=== PATIENT | female | born 1990 | race Caucasian/White ===

== ENCOUNTER 2018-04-01 10:47 | Inpatient (IN) | payer BC ==
[2018-04-01] MEDS ORDERED: Lidocaine 1% 50 ML MDV INJECT PRN (11:38)
[2018-04-01] MEDS ORDERED: Sodium Chloride 0.9% 2.5 ML Syringe FLUSH PRN (11:38)
[2018-04-01] MEDS ORDERED: Tranexamic Acid 1,000 MG in Sodium Chloride 0.9% 100 ML IV PRN (11:38)
[2018-04-01] MEDS ORDERED: Nalbuphine 10 MG/1 ML Vial IVPUSH PRN (11:38)
[2018-04-01] MEDS ORDERED: Misoprostol 200 MCG Tab PO PRN (11:38)
[2018-04-01] MEDS ORDERED: Sodium Chloride 0.9% 10 ML Syringe FLUSH PRN (11:38)
[2018-04-01] MEDS ORDERED: Methylergonovine 0.2 MG/1 ML Amp IM PRN (11:38)
[2018-04-01] MEDS ORDERED: Water For Irrigation,Sterile 1,000 ML Container IRR PRN (11:38)
[2018-04-01] MEDS ORDERED: Ampicillin 2 GM in Sodium Chloride 0.9% 100 ML IV ONE (11:38)
[2018-04-01] MEDS ORDERED: Carboprost Tromethamine 250 MCG/1 ML Amp IM PRN (11:38)
[2018-04-01] MEDS ORDERED: Oxytocin/0.9 % Sodium Chloride 30 UNIT/500 ML BAG IV SCH ×2 (11:45→14:00)
[2018-04-01] MEDS: Lactated Ringers 1,000 ML IV SCH ×4 (12:05→23:41)
[2018-04-01] MEDS ORDERED: Terbutaline 1 MG/ML SDV SUBCUT PRN (13:49)
[2018-04-01 14:30] LABS: CHLORIDE,CL 107 mmol/L (98-107); SODIUM,NA 139 mmol/L (136-145)
[2018-04-01] MEDS: Ampicillin 1 GM in Sodium Chloride 0.9% 50 ML IV SCH ×2 (16:50→20:41)
[2018-04-01] MEDS ORDERED: Sodium Chloride 0.9% 1,000 ML IV SCH (20:15)
[2018-04-02] MEDS: Ampicillin 1 GM in Sodium Chloride 0.9% 50 ML IV SCH ×4 (01:04→12:50)
[2018-04-02] MEDS: Butorphanol 1 MG/ML SDV IVPUSH PRN ×2 (01:06→03:38)
[2018-04-02] MEDS: Lactated Ringers 1,000 ML IV SCH ×3 (05:19→07:49)
--- NOTE | 2018-04-02 06:31 | PCM.PREANE ---
Preanesthetic Assessment - Anesthesia/Transfusion/Family Hx Anesthesia History: No Prior Anesthesia Family History of Anesthesia Reaction: No Transfusion History: No Prior Transfusion(s) - Review of Systems General: No Symptoms Pulmonary: No Symptoms Cardiovascular: No Symptoms Gastrointestinal: No Symptoms Neurological: No Symptoms Other: Reports: None - Physical Assessment Height: 5 ft 6 in Weight: 92.986 kg ASA Class: 2 Mental Status: Alert & Oriented x3 Airway Class: Mallampati = 2 Dentition: Reports: Normal Dentition Thyro-Mental Finger Breadths: 3 Mouth Opening Finger Breadths: 3 ROM/Head Extension: Full Lungs: Clear to Auscultation, Normal Respiratory Effort Cardiovascular: Regular Rate, Regular Rhythm - Lab Values: Laboratory Last Values WBC 14.18 K/uL (4.0-11.0) H 04/01/18 12:02 RBC 4.14 M/uL (4.30-5.90) L 04/01/18 12:02 Hgb 11.8 g/dL (12.0-16.0) L 04/01/18 12:02 Hct 35.0 % (36.0-46.0) L 04/01/18 12:02 MCV 84.5 fL (80.0-98.0) 04/01/18 12:02 MCH 28.5 pg (27.0-32.0) 04/01/18 12:02 MCHC 33.7 g/dL (31.0-37.0) 04/01/18 12:02 RDW Std Deviation 40.4 fl (28.0-62.0) 04/01/18 12:02 RDW Coeff of [place] 13 % (11.0-15.0) 04/01/18 12:02 Plt Count 256 K/uL (150-400) 04/01/18 12:02 MPV 9.80 fL (7.40-12.00) 04/01/18 12:02 Nucleated RBC % 0.0 /100WBC 04/01/18 12:02 Nucleated RBCs # 0 K/uL 04/01/18 12:02 Sodium 139 mmol/L (136-145) 04/01/18 14:04 Potassium 3.5 mmol/L (3.5-5.1) 04/01/18 14:04 Chloride 107 mmol/L (98-107) 04/01/18 14:04 Carbon Dioxide 21.7 mmol/L (21.0-32.0) 04/01/18 14:04 BUN 6 mg/dL (7.0-18.0) L 04/01/18 14:04 Creatinine 0.6 mg/dL (0.6-1.0) 04/01/18 14:04 Est Cr Clr Drug Dosing 129.51 mL/min 04/01/18 14:04 Estimated GFR (MDRD) > 60.0 ml/min 04/01/18 14:04 Glucose 98 mg/dL (74-106) 04/01/18 14:04 Uric Acid 4.3 mg/dL (2.6-7.2) 04/01/18 14:04 Calcium 10.0 mg/dL (8.5-10.1) 04/01/18 14:04 Total Bilirubin 0.2 mg/dL (0.2-1.0) 04/01/18 14:04 AST 12 IU/L (15-37) L 04/01/18 14:04 ALT 11 IU/L (14-63) L 04/01/18 14:04 Alkaline Phosphatase 129 U/L (46-116) H 04/01/18 14:04 Total Protein 6.3 g/dL (6.4-8.2) L 04/01/18 14:04 Albumin 2.5 g/dL (3.4-5.0) L 04/01/18 14:04 Globulin 3.8 g/dL (2.0-3.5) H 04/01/18 14:04 Albumin/Globulin Ratio 0.7 (1.3-2.8) L 04/01/18 14:04 Urine Color YELLOW 04/01/18 15:35 Urine Appearance CLEAR 04/01/18 15:35 Urine pH 6.5 (5.0-8.0) 04/01/18 15:35 Ur Specific [place] <= 1.005 (1.001-1.035) 04/01/18 15:35 Urine Protein NEGATIVE mg/dL (NEGATIVE) 04/01/18 15:35 Urine Glucose (UA) NEGATIVE mg/dL (NEGATIVE) 04/01/18 15:35 Urine Ketones NEGATIVE mg/dL (NEGATIVE) 04/01/18 15:35 Urine Occult Blood SMALL (NEGATIVE) H 04/01/18 15:35 Urine Nitrite NEGATIVE (NEGATIVE) 04/01/18 15:35 Urine Bilirubin NEGATIVE (NEGATIVE) 04/01/18 15:35 Urine Urobilinogen 0.2 EU/dL (<2.0) 04/01/18 15:35 Ur Leukocyte Esterase NEGATIVE (NEGATIVE) 04/01/18 15:35 Membrane Rupture POSITIVE 04/01/18 11:14 Blood Type B POSITIVE 04/01/18 12:02 Antibody Screen NEGATIVE 04/01/18 12:02 - Allergies Allergies/Adverse Reactions: Allergies Allergy/AdvReac Type Severity Reaction Status Date / Time No Known Allergies Allergy Verified 04/01/18 11:16 - Acknowledgements Anesthesia Type Planned: Epidural Pt an Appropriate Candidate for the Planned Anesthesia: Yes Alternatives and Risks of Anesthesia Discussed w Pt/Guardian: Yes Pt/Guardian Understands and Agrees with Anesthesia Plan: Yes PreAnesthesia Questionnaire HEENT History: Reports: None Cardiovascular History: Reports: None Respiratory History: Reports: None Gastrointestinal History: Reports: Cholelithiasis, GERD Genitourinary History: Reports: None [employer] TECHNICIAN History: Reports: : 1 Para: 0 LMP (Approximate): Musculoskeletal History: Reports: None Neurological History: Reports: None Psychiatric History: Reports: None Endocrine/Metabolic History: Reports: Obesity/BMI 30+ Hematologic History: Reports: Anemia Immunologic History: Reports: None Oncologic (Cancer) History: Reports: None Dermatologic History: Reports: None - Past Surgical History GI Surgical History: Reports: Other (See Below) Other GI Surgeries/Procedures: Gall bladder removal 2013 Female Surgical History: Reports: Oophorectomy, Other (See Below) Other Female Surgeries/Procedures: Rt Ovary cyst 05/2014. Lt ovary removal - SUBSTANCE USE Smoking Status *Q: Current Every Day Smoker Tobacco Use Within Last Twelve Months: Cigarettes Second Hand Smoke Exposure: Yes Recreational Drug Use History: No - HOME MEDS Home Medications: Home Meds Cetirizine [ZyrTEC] 10 mg PO DAILY 04/01/18 [History] Fluticasone Propionate [Flonase] 16 gm NS DAILY 04/01/18 [History] Omeprazole 20 mg PO DAILY 04/01/18 [History] Vit #108/Iron/FA [ One Tablet] 1 tab PO DAILY 04/01/18 [History ] - CURRENT (IN HOUSE) MEDS Current Meds: Current Medications Butorphanol Tartrate (Stadol) 1 mg IVPUSH ASDIRECTED PRN PRN Reason: Pain Last Admin: 04/02/18 03:38 Dose: 1 mg Carboprost Tromethamine (Hemabate Ds) 250 mcg IM ASDIRECTED PRN PRN Reason: Post Hemorrhage Tranexamic Acid 1,000 mg/ (Sodium Chloride) 110 mls @ 660 mls/hr IV ONETIME PRN PRN Reason: Bleeding Lactated Ringer's (Ringers, Lactated) 1,000 mls @ 150 mls/hr IV ASDIRECTED [facility] Last Admin: 04/02/18 05:19 Dose: 150 mls/hr Oxytocin/Sodium Chloride (Oxytocin 30 Unit/500 Ml-Ns) 30 unit in 500 mls @ 999 mls/hr IV TITRATE [facility] Oxytocin/Sodium Chloride (Oxytocin 30 Unit/500 Ml-Ns) 30 unit in 500 mls @ 2 mls/hr IV TITRATE [facility]; Protocol Last Titration: 04/02/18 04:05 Dose: 6 munits/min, 6 mls/hr Ampicillin Sodium 1 gm/ Sodium (Chloride) 50 mls @ 100 mls/hr IV Q4H [facility] Last Admin: 04/02/18 05:59 Dose: 100 mls/hr Sodium Chloride (Normal Saline) 1,000 mls @ 125 mls/hr IV ASDIRECTED [facility] Last Admin: 04/01/18 20:35 Dose: 125 mls/hr Lidocaine HCl (Xylocaine 1%) 50 ml INJECT ONETIME PRN PRN Reason: Laceration repair Methylergonovine Maleate (Methergine) 0.2 mg IM ASDIRECTED PRN PRN Reason: Post Hemorrhage Misoprostol (Cytotec) 200 mcg PO ONETIME PRN PRN Reason: Post Hemorrhage Nalbuphine HCl (Nubain) 10 mg IVPUSH ASDIRECTED PRN PRN Reason: Pain (severe 7-10) Sodium Chloride (Saline Flush) 10 ml FLUSH ASDIRECTED PRN PRN Reason: Keep Vein Open Sodium Chloride (Saline Flush) 2.5 ml FLUSH ASDIRECTED PRN PRN Reason: Keep Vein Open Sterile Water (Sterile Water For Irrigation) 1,000 ml IRR ASDIRECTED PRN PRN Reason: delivery Terbutaline Sulfate (Brethine) 0.25 mg SUBCUT ASDIRECTED PRN PRN Reason: Tacysystole Discontinued Medications Ampicillin Sodium 2 gm/ Sodium (Chloride) 100 mls @ 200 mls/hr IV ONETIME ONE Stop: 04/01/18 12:07 Last Admin: 04/01/18 12:17 Dose: 200 mls/hr
[2018-04-02] MEDS ORDERED: Ondansetron 4 MG/2 ML SDV ONE (07:13)
[2018-04-02] MEDS ORDERED: Oxytocin 10 Units/1 ML SDV ONE (07:13)
[2018-04-02] MEDS ORDERED: ePHEDrine 50 MG/ML SDV ONE (07:13)
[2018-04-02] MEDS ORDERED: fentaNYL 100 MCG/2 ML SDV ONE (07:14)
[2018-04-02] MEDS ORDERED: Sodium Chloride 0.9% 0 ML ONE (07:15)
--- NOTE | 2018-04-02 13:34 | PCM.DEL ---
L & D Note - General Info Date of Service: 04/02/18 Mother's Due Date: 04/08/18 - Delivery Note Labor: Augmented by Oxytocin Delivery Outcome: Livebirth Infant Delivery Method: Spontaneous Vaginal Delivery-Single Delivery Mode: Vacuum Extraction Presentation: Right Occiput Anterior (ANGELICA) Prep: Povidone-Iodine (Betadine Anesthesia Type: Local, Epidural Amniotic Fluid Description: Clear Episiotomy Type: None Laceration: 2nd Degree Suture type: Vicryl Suture size: 3-0 Placenta: Intact, Spontaneous Cord: 3 Vessels Resuscitation Needed: Yes Provider: Jo Durán Score 1 min: 3 Score 5 min: 4 Score 10 min: 7 ( of 9 at 15 minutes) Second Stage Interventions: Reports: Encouragement Given, Pushing, Stirrups/Leg Supports Delivery Comments (Free Text/Narrative):: Liveborn female weight 3010 grams, should and body cord noted. RT present at time of delivery, anesthesia, Dr. Durán present for resuscitation. Placenta to pathology. - General Info Date of Service: 04/02/18 - Patient Data Weight - Most Recent: 92.986 kg Lab Results Last 24 Hours: Laboratory Results - last 24 hr 04/01/18 04/01/18 Range/Units 14:04 15:35 Sodium 139 (136-145) mmol/L Potassium 3.5 (3.5-5.1) mmol/L Chloride 107 (98-107) mmol/L Carbon Dioxide 21.7 (21.0-32.0) mmol/L BUN 6 L (7.0-18.0) mg/dL Creatinine 0.6 (0.6-1.0) mg/dL Est Cr Clr Drug Dosing 129.51 mL/min Estimated GFR (MDRD) > 60.0 ml/min Glucose 98 (74-106) mg/dL Uric Acid 4.3 (2.6-7.2) mg/dL Calcium 10.0 (8.5-10.1) mg/dL Total Bilirubin 0.2 (0.2-1.0) mg/dL AST 12 L (15-37) IU/L ALT 11 L (14-63) IU/L Alkaline Phosphatase 129 H (46-116) U/L Total Protein 6.3 L (6.4-8.2) g/dL Albumin 2.5 L (3.4-5.0) g/dL Globulin 3.8 H (2.0-3.5) g/dL Albumin/Globulin Ratio 0.7 L (1.3-2.8) Urine Color YELLOW Urine Appearance CLEAR Urine pH 6.5 (5.0-8.0) Ur Specific [place] <= 1.005 (1.001-1.035) Urine Protein NEGATIVE (NEGATIVE) mg/dL Urine Glucose (UA) NEGATIVE (NEGATIVE) mg/dL Urine Ketones NEGATIVE (NEGATIVE) mg/dL Urine Occult Blood SMALL H (NEGATIVE) Urine Nitrite NEGATIVE (NEGATIVE) Urine Bilirubin NEGATIVE (NEGATIVE) Urine Urobilinogen 0.2 (<2.0) EU/dL Ur Leukocyte Esterase NEGATIVE (NEGATIVE) Med Orders - Current: Current Medications Butorphanol Tartrate (Stadol) 1 mg IVPUSH ASDIRECTED PRN PRN Reason: Pain Last Admin: 04/02/18 03:38 Dose: 1 mg Carboprost Tromethamine (Hemabate Ds) 250 mcg IM ASDIRECTED PRN PRN Reason: Post Hemorrhage Tranexamic Acid 1,000 mg/ (Sodium Chloride) 110 mls @ 660 mls/hr IV ONETIME PRN PRN Reason: Bleeding Lactated Ringer's (Ringers, Lactated) 1,000 mls @ 150 mls/hr IV ASDIRECTED [facility] Last Admin: 04/02/18 07:49 Dose: 150 mls/hr Oxytocin/Sodium Chloride (Oxytocin 30 Unit/500 Ml-Ns) 30 unit in 500 mls @ 999 mls/hr IV TITRATE [facility] Oxytocin/Sodium Chloride (Oxytocin 30 Unit/500 Ml-Ns) 30 unit in 500 mls @ 2 mls/hr IV TITRATE [facility]; Protocol Last Titration: 04/02/18 10:17 Dose: 12 munits/min, 12 mls/hr Ampicillin Sodium 1 gm/ Sodium (Chloride) 50 mls @ 100 mls/hr IV Q4H [facility] Last Admin: 04/02/18 09:30 Dose: 100 mls/hr Sodium Chloride (Normal Saline) 1,000 mls @ 125 mls/hr IV ASDIRECTED [facility] Last Admin: 04/01/18 20:35 Dose: 125 mls/hr Lidocaine HCl (Xylocaine 1%) 50 ml INJECT ONETIME PRN PRN Reason: Laceration repair Methylergonovine Maleate (Methergine) 0.2 mg IM ASDIRECTED PRN PRN Reason: Post Hemorrhage Misoprostol (Cytotec) 200 mcg PO ONETIME PRN PRN Reason: Post Hemorrhage Nalbuphine HCl (Nubain) 10 mg IVPUSH ASDIRECTED PRN PRN Reason: Pain (severe 7-10) Sodium Chloride (Saline Flush) 10 ml FLUSH ASDIRECTED PRN PRN Reason: Keep Vein Open Sodium Chloride (Saline Flush) 2.5 ml FLUSH ASDIRECTED PRN PRN Reason: Keep Vein Open Sterile Water (Sterile Water For Irrigation) 1,000 ml IRR ASDIRECTED PRN PRN Reason: delivery Terbutaline Sulfate (Brethine) 0.25 mg SUBCUT ASDIRECTED PRN PRN Reason: Tacysystole Discontinued Medications Ephedrine Sulfate (Ephedrine Sulfate) Confirm Administered Dose 50 mg .ROUTE .STK-MED ONE Stop: 04/02/18 07:14 Fentanyl (Sublimaze) Confirm Administered Dose 100 mcg .ROUTE .STK-MED ONE Stop: 04/02/18 07:15 Ampicillin Sodium 2 gm/ Sodium (Chloride) 100 mls @ 200 mls/hr IV ONETIME ONE Stop: 04/01/18 12:07 Last Admin: 04/01/18 12:17 Dose: 200 mls/hr Fentanyl/Bupivacaine HCl (Yenjlpun-Fxduc-Bx 2 Mcg/Ml-0.125%) Confirm Administered Dose 100 mls @ as directed EP .STK-MED ONE Stop: 04/02/18 06:34 Sodium Chloride (Normal Saline) Confirm Administered Dose 20 mls @ as directed .ROUTE .STK-MED ONE Stop: 04/02/18 07:16 Ondansetron HCl (Zofran) Confirm Administered Dose 4 mg .ROUTE .STK-MED ONE Stop: 04/02/18 07:14 Oxytocin (Pitocin) Confirm Administered Dose 20 unit .ROUTE .STK-MED ONE Stop: 04/02/18 07:14 - Problem List & Annotations (1) Vaginal delivery SNOMED Code(s): 121033190 Code(s): O80 - ENCOUNTER FOR FULL-TERM UNCOMPLICATED DELIVERY Status: Acute Current Visit: Yes - Problem List Review Problem List Initiated/Reviewed/Updated: Yes - Assessment Assessment:: 39 1/7 weeks, PROM, with induction, GBS positive, abnormal heart tones, vacuum assisted vaginal delivery.
[2018-04-02] MEDS ORDERED: Ibuprofen 400 MG Tab PO PRN (13:36)
[2018-04-02] MEDS ORDERED: Acetaminophen 500 MG Tab PO PRN ×2 (13:36)
[2018-04-02] MEDS ORDERED: Benzocaine/Menthol 20%-0.5% Spray 78 GM Cannister TOP PRN (13:36)
[2018-04-02] MEDS ORDERED: Bisacodyl 10 MG Supp RECTAL PRN (13:36)
[2018-04-02] MEDS ORDERED: Docusate Sodium 100 MG Cap PO PRN (13:36)
[2018-04-02] MEDS ORDERED: Methylergonovine 0.2 MG/1 ML Amp IM PRN (13:36)
[2018-04-02] MEDS ORDERED: Witch Hazel Medicated Pads 40/Jar TOP PRN (13:36)
[2018-04-02] MEDS ORDERED: oxyCODONE 5 MG Tab PO PRN (13:36)
[2018-04-02] MEDS: Ibuprofen 800 MG Tab PO PRN (16:10)
--- NOTE | 2018-04-02 19:40 | PCM48HPAN ---
Post Anesthesia Note - EVALUATION WITHIN 48HRS OF ANESTHETIC Vital Signs in Normal Range: Yes Patient Participated in Evaluation: Yes Respiratory Function Stable: Yes Airway Patent: Yes Cardiovascular Function Stable: Yes Hydration Status Stable: Yes Pain Control Satisfactory: Yes Nausea and Vomiting Control Satisfactory: Yes Mental Status Recovered: Yes
--- NOTE | 2018-04-03 07:49 | PCM.PNPP ---
- General Info Date of Service: 04/03/18 Functional Status: Reports: Pain Controlled, Tolerating Diet - Review of Systems General: Denies: Fever HEENT: Denies: Headaches Pulmonary: Denies: Shortness of Breath, Pleuritic Chest Pain Cardiovascular: Denies: Chest Pain, Palpitations, Dyspnea on Exertion Gastrointestinal: Denies: Abdominal Pain Genitourinary: Denies: Dysuria, Burning - General Info Date of Service: 04/03/18 - Patient Data Vital Signs - Most Recent: Last Vital Signs Temp 36.7 C 04/03/18 03:56 Pulse 73 04/03/18 03:56 Resp 16 04/03/18 03:56 BP 122/81 04/03/18 03:56 Pulse Ox 95 04/03/18 03:56 Weight - Most Recent: 205 lb Lab Results - Last 24 Hours: Laboratory Results - last 24 hr 04/02/18 04/03/18 Range/Units 12:58 06:28 Hgb 10.0 L (12.0-16.0) g/dL Hct 29.6 L (36.0-46.0) % Cord ABG pH 7.176 L (7.18-7.38) Cord ABG Base Excess -7 (-10--2) Cord VBG pH 7.276 (7.25-7.45) Cord VBG Base Excess -6 (-10--2) Med Orders - Current: Current Medications Acetaminophen (Tylenol Extra Strength) 500 mg PO Q4H PRN PRN Reason: Pain Acetaminophen (Tylenol Extra Strength) 1,000 mg PO Q4H PRN PRN Reason: Pain Benzocaine/Menthol (Dermoplast Pain Relief 20%-0.5% [place]) 78 gm TOP ASDIRECTED PRN PRN Reason: Perineal Comfort Measure Last Admin: 04/02/18 14:05 Dose: 78 gm Bisacodyl (Dulcolax) 10 mg RECTAL ONETIME PRN PRN Reason: Constipation Docusate Sodium (Colace) 100 mg PO BID PRN PRN Reason: Constipation Emollient Ointment (Lansinoh Hpa) 0 gm TOP ASDIRECTED PRN PRN Reason: Sore Nipples Ibuprofen (Motrin) 400 mg PO Q4H PRN PRN Reason: Pain Ibuprofen (Motrin) 800 mg PO Q6H PRN PRN Reason: Pain Last Admin: 04/02/18 16:10 Dose: 800 mg Methylergonovine Maleate (Methergine) 0.2 mg IM ONETIME PRN PRN Reason: Excessive Vaginal Bleeding Oxycodone HCl (Oxycodone) 5 mg PO Q2H PRN PRN Reason: Pain Witch Kimberly (Tucks) 1 pad TOP ASDIRECTED PRN PRN Reason: comfort care Last Admin: 04/02/18 14:04 Dose: 1 tub Discontinued Medications Butorphanol Tartrate (Stadol) 1 mg IVPUSH ASDIRECTED PRN PRN Reason: Pain Last Admin: 04/02/18 03:38 Dose: 1 mg Carboprost Tromethamine (Hemabate Ds) 250 mcg IM ASDIRECTED PRN PRN Reason: Post Hemorrhage Ephedrine Sulfate (Ephedrine Sulfate) Confirm Administered Dose 50 mg .ROUTE .STK-MED ONE Stop: 04/02/18 07:14 Fentanyl (Sublimaze) Confirm Administered Dose 100 mcg .ROUTE .STK-MED ONE Stop: 04/02/18 07:15 Tranexamic Acid 1,000 mg/ (Sodium Chloride) 110 mls @ 660 mls/hr IV ONETIME PRN PRN Reason: Bleeding Ampicillin Sodium 2 gm/ Sodium (Chloride) 100 mls @ 200 mls/hr IV ONETIME ONE Stop: 04/01/18 12:07 Last Admin: 04/01/18 12:17 Dose: 200 mls/hr Lactated Ringer's (Ringers, Lactated) 1,000 mls @ 150 mls/hr IV ASDIRECTED [facility] Last Admin: 04/02/18 07:49 Dose: 150 mls/hr Oxytocin/Sodium Chloride (Oxytocin 30 Unit/500 Ml-Ns) 30 unit in 500 mls @ 999 mls/hr IV TITRATE [facility] Oxytocin/Sodium Chloride (Oxytocin 30 Unit/500 Ml-Ns) 30 unit in 500 mls @ 2 mls/hr IV TITRATE [facility]; Protocol Last Titration: 04/02/18 13:00 Dose: 500 munits/min, 500 mls/hr Ampicillin Sodium 1 gm/ Sodium (Chloride) 50 mls @ 100 mls/hr IV Q4H [facility] Last Admin: 04/02/18 12:50 Dose: Not Given Sodium Chloride (Normal Saline) 1,000 mls @ 125 mls/hr IV ASDIRECTED [facility] Last Admin: 04/01/18 20:35 Dose: 125 mls/hr Fentanyl/Bupivacaine HCl (Lccxuvfj-Eyxvb-Li 2 Mcg/Ml-0.125%) Confirm Administered Dose 100 mls @ as directed EP .STK-MED ONE Stop: 04/02/18 06:34 Sodium Chloride (Normal Saline) Confirm Administered Dose 20 mls @ as directed .ROUTE .STK-MED ONE Stop: 04/02/18 07:16 Lidocaine HCl (Xylocaine 1%) 50 ml INJECT ONETIME PRN PRN Reason: Laceration repair Last Admin: 04/02/18 13:03 Dose: 50 ml Methylergonovine Maleate (Methergine) 0.2 mg IM ASDIRECTED PRN PRN Reason: Post Hemorrhage Misoprostol (Cytotec) 200 mcg PO ONETIME PRN PRN Reason: Post Hemorrhage Nalbuphine HCl (Nubain) 10 mg IVPUSH ASDIRECTED PRN PRN Reason: Pain (severe 7-10) Ondansetron HCl (Zofran) Confirm Administered Dose 4 mg .ROUTE .STK-MED ONE Stop: 04/02/18 07:14 Oxytocin (Pitocin) Confirm Administered Dose 20 unit .ROUTE .STK-MED ONE Stop: 04/02/18 07:14 Sodium Chloride (Saline Flush) 10 ml FLUSH ASDIRECTED PRN PRN Reason: Keep Vein Open Sodium Chloride (Saline Flush) 2.5 ml FLUSH ASDIRECTED PRN PRN Reason: Keep Vein Open Sterile Water (Sterile Water For Irrigation) 1,000 ml IRR ASDIRECTED PRN PRN Reason: delivery Last Admin: 04/02/18 12:34 Dose: 1,000 ml Terbutaline Sulfate (Brethine) 0.25 mg SUBCUT ASDIRECTED PRN PRN Reason: Tacysystole - Interaction Disposition, : in Room with Family Infant Interaction: Not Applicable Infant Feeding: Attempted ; Nursed Fair/Poor, Continues to Breastfeed, Encouraged to Breastfeed Support Person: - Recovery Exam Fundal Tone: Firm Fundal Level: At Umbilicus Fundal Placement: Midline Lochia Amount: Small Lochia Color: Rubra/Red Perineum Description: Intact, Minimal Bruising/Swelling Episiotomy/Laceration: Approximated Bladder Status: Nonpalpable Urinary Elimination: Voided - Exam General: Alert, Oriented Lungs: Clear to Auscultation, Normal Respiratory Effort Cardiovascular: Regular Rate, Regular Rhythm GI/Abdominal Exam: Soft, Non-Tender Extremities: Non-Tender, Pedal Edema Skin: Warm Psy/Mental Status: Alert, Normal Affect, Normal Mood - Problem List & Annotations (1) Vaginal delivery SNOMED Code(s): 515766711 Code(s): O80 - ENCOUNTER FOR FULL-TERM UNCOMPLICATED DELIVERY Status: Acute Current Visit: Yes - Problem List Review Problem List Initiated/Reviewed/Updated: Yes - Assessment Assessment:: PPD#1 s/p VAVD, stable and afebrile - Plan Plan:: Continue routine care and aim for discharge tomorrow
[2018-04-03] MEDS: Lanolin 100% Cream 7 GM Tube TOP PRN ×2 (09:32→17:09)
[2018-04-03] MEDS: Ibuprofen 800 MG Tab PO PRN ×2 (09:32→17:09)
--- NOTE | 2018-04-03 11:31 | OR ---
SURGEON: Pratibha Oneil M.D. DATE OF PROCEDURE: 04/02/2018 PREOPERATIVE DIAGNOSES: 1. A 39-week intrauterine . 2. Premature rupture of membranes. 3. Abnormal heart tones. POSTOPERATIVE DIAGNOSES: 1. A 39-week intrauterine . 2. Premature rupture of membranes. 3. Abnormal heart tones. PROCEDURES PERFORMED: 1. Vacuum-assisted vaginal delivery. 2. Repair of second-degree laceration. ANESTHESIA: Epidural and local. ESTIMATED BLOOD LOSS: Less than 200 mL. FINDINGS: Liveborn female. score at 1 minute was 3, at 5 minutes was 4, at 10 minutes was 7, and at 15 minutes was 9. Weight is 3010 g. COMPLICATIONS: None known. DISPOSITION: Mother and baby are in LDRP in good condition. BRIEF HISTORY: This is a 27-year-old female . She is a patient of Dr. Matthews. She had spontaneous rupture of membranes at approximately 8:00 a.m. on 03/31/2018. She presented in the late afternoon on 03/31/2018. She was known to be group B Strep positive. She was started on ampicillin and has received a total of 5 doses of ampicillin. She made some spontaneous change, however required augmentation. Throughout the night, she had decelerations. The augmentation was discontinued, but was restarted at approximately 8:00 a.m. She has remained afebrile throughout labor. The nurse called with report of deep variable decelerations. Dr. Matthews was occupied in the operating room, and therefore, I was called and arrived at 12:30 p.m. to assess the labor. She had recurrent deep variable and late decelerations. Pitocin was discontinued. Positions were adjusted. She had oxygen on. I assessed her cervix. She had a reducible anterior lip and was encouraged to begin pushing. Initially, the fetus was in the right occipitoposterior position, and I was fairly easily able to rotate to right occipitoanterior position, and the patient had good expulsive efforts; however, the decelerations continued. Therefore, I asked permission to proceed with a vacuum assistance. She did have a gynecoid pelvis. The bladder had been emptied. Estimated weight was approximately 3300 g by Bret. Risks of the vacuum were briefly reviewed, and she agreed to proceed with vacuum assistance. DESCRIPTION OF PROCEDURE: With the patient in dorsolithotomy position, the patient pushed over an approximately 10-minute time. At which time, recurrent decelerations that did not improve prompted me to recommend a vacuum-assisted vaginal delivery. The patient did agree. The vacuum was placed on the caput in the midsagittal line with the midpoint of the vacuum being 2 cm anterior to the posterior fontanelle. The head was at a +3 station. With maternal expulsive efforts over approximately 5 minutes with no pop offs, I delivered the head over the perineum with support with subsequent delivery of the infant's shoulders and body without any difficulty. The infant had a cord around the shoulders on both sides and then wrapped around the body. The infant was very briefly handed to the mother in the presence of the nurse attending delivery. The had poor tone, but was pink with no respiratory effort. Therefore, the cord was quickly clamped and cut, and the infant was handed to the nurse in attendance at delivery. Dr. Durán had also been called for delivery due to the use of the vacuum and the abnormal heart tones. Please see record from Pediatrics regarding resuscitation. An excellent resuscitation was performed with an outcome of scores of 3 at 1 minute, 4 at 5 minutes, 7 at 10 minutes, and 9 at 15 minutes. Subsequently, the was pink and at this time was attempting to nurse. Pitocin was initiated to assist with delivery of the placenta, which was delivered spontaneously, Gallardo, intact with 3 vessels. It was sent to Pathology due to the abnormal heart tones. Cord blood had been collected for cord ABGs as well as routine cord blood sampling. Upon inspection the pelvis and perineum, there were no periurethral, vaginal sidewall, cervical, or rectal lacerations. There was, however, a second-degree perineal laceration extending barely slightly onto the perineum, primarily vaginal component. This was repaired after using 10 mL of 1% lidocaine using a running lock suture of 3-0 Vicryl for the vaginal mucosa, a deep running suture of the same for the perineum, and a subcuticular suture of the same for the skin. Final sponge, needle, and instrument counts were correct. There were no known complications. Mother and baby are in LDRP in good condition. PIYUSH / MICHAELA /[id number]
== END 2018-04-03 19:30 | disposition home or self-care (01) | DRG 560 ==
LOC: MW.OBCHECK 10:47 → MW.OB 10:49 → MW.OBCHECK 11:39 → MW.OB 11:39 → OBSVTOIN 04-02 12:58 → MW.OB 04-02 16:35
PROVIDERS: ADMIT Obstetrics & Gynecology; ATTEND Obstetrics & Gynecology
PROC: 10D07Z6 Extraction of Products of Conception, Vacuum, Via Natural or Artificial Opening (ICD-10-PCS; principal; 2018-04-02)
PROC: 0KQM0ZZ Repair Perineum Muscle, Open Approach (ICD-10-PCS; 2018-04-02)
PROC: 00HU33Z Insertion of Infusion Device into Spinal Canal, Percutaneous Approach (ICD-10-PCS; 2018-04-02)
DX: O42.02 Full-term premature rupture of membranes, onset of labor within 24 hours of rupture (principal); O76 Abnormality in fetal heart rate and rhythm complicating labor and delivery; O70.1 Second degree perineal laceration during delivery; O99.824 Streptococcus B carrier state complicating childbirth; Z3A.39 39 weeks gestation of pregnancy; Z37.0 Single live birth
CPT/HCPCS: 36415; 59025; 59409; 80053; 81003; 82803; 84112; 84550; 85014; 85018; 85027; 86850; 86900; 86901; A9270-GY; J0290; J0595; J2405; J2590; J3010; J7030; J7040; J7050; J7120